=== PATIENT | male | born 1940 | race Two or more races ===

== ENCOUNTER 2017-06-14 17:53 | Emergency (ER) | payer MEDICARE, BC ==
[2017-06-14] MEDS ORDERED: predniSONE 50 MG TAB PO STA (18:09)
--- NOTE | 2017-06-14 18:09 | ED ---
General Adult HPI - General Chief complaint: Skin/Abscess/Foreign Body Stated complaint: Vertigo/Headache/Rash Time Seen by Provider: 06/14/17 18:00 Source: patient, RN notes reviewed Mode of arrival: EMS Limitations: no limitations - History of Present Illness Initial comments: This is a 76-year-old male who presents emergency department stating that for a week he's had a rash on the outside of his face left ear and left neck with little extents onto his upper back and chest. It is only on the left side. The areas has multiple areas of grouped vesicles. Patient states it is painful. Patient states about 3 days ago he started developing headache which continues today. Patient states today he started having dizziness felt as though things were spinning and moving around. Patient states he does not have any history of vertigo. Patient denies any numbness or weakness. Patient denies any facial droop. Patient denies any change in his hearing. Patient denies any visual disturbance. Patient denies any eye pain. Patient denies any chest pain palpitations difficulty breathing shortness of breath. Patient denies any recent fever chills. - Related Data Home Medications Medication Instructions Recorded Confirmed Ascorbic Acid [Vitamin C] 1,000 mg PO HS 06/14/17 06/14/17 Aspirin EC [Ecotrin] 325 mg PO DAILY 06/14/17 06/14/17 Atorvastatin [Lipitor] 15 mg PO DAILY 06/14/17 06/14/17 Brimonidine Tartrate [Alphagan P 1 drops BOTH EYES BID 06/14/17 06/14/17 0.2% Ophth Soln] Carvedilol [Coreg] 12.5 mg PO BID 06/14/17 06/14/17 Cholecalciferol [Vitamin D3] 1,000 unit PO HS 06/14/17 06/14/17 Clopidogrel [Plavix] 75 mg PO DAILY 06/14/17 06/14/17 Latanoprost [Xalatan 0.005%] 1 drop BOTH EYES HS 06/14/17 06/14/17 Niacin 100 mg PO HS 06/14/17 06/14/17 [place]-3 Fatty Acids [[place]-3] 1,000 mg PO DAILY 06/14/17 06/14/17 Ramipril [Altace] 5 mg PO HS 06/14/17 06/14/17 Timolol 0.5% Ophth Soln [Timoptic 1 drop BOTH EYES BID 06/14/17 06/14/17 0.5% Ophth Soln] Vitamin E 100 unit PO Q48H 06/14/17 06/14/17 Previous Rx's Medication Instructions Recorded Meclizine [Antivert] 25 mg PO TID #20 tab 06/14/17 predniSONE 30 mg PO BID #10 tab 06/14/17 valACYclovir HCL [Valacyclovir] 1,000 mg PO Q8HR #21 tab 06/14/17 Allergies Allergy/AdvReac Type Severity Reaction Status Date / Time No Known Allergies Allergy Verified 06/14/17 18:16 Review of Systems ROS Statement: Those systems with pertinent positive or pertinent negative responses have been documented in the HPI. ROS Other: All systems not noted in ROS Statement are negative. Past Medical History Past Medical History: Hypertension Additional Past Medical History / Comment(s): cardiac History of Any Multi-Drug Resistant Organisms: None Reported Past Surgical History: Coronary Bypass/CABG, Heart Catheterization With Stent Past Psychological History: No Psychological Hx Reported Smoking Status: Never smoker Past Alcohol Use History: None Reported Past Drug Use History: None Reported General Exam - General Exam Comments Initial Comments: GENERAL: Patient is well-developed and well-nourished. Patient is nontoxic and well- hydrated and is in mild distress. ENT: Neck is soft and supple. No significant lymphadenopathy is noted. Oropharynx is clear. Moist mucous membranes. Neck has full range of motion without eliciting any pain. EYES: The sclera were anicteric and conjunctiva were pink and moist. Extraocular movements were intact and pupils were equal round and reactive to light. Eyelids were unremarkable. PULMONARY: Unlabored respirations. Good breath sounds bilaterally. No audible rales rhonchi or wheezing was noted. CARDIOVASCULAR: There is a regular rate and rhythm without any murmurs gallops or rubs. ABDOMEN: Soft and nontender with normal bowel sounds. No palpable organomegaly was noted. There is no palpable pulsatile mass. SKIN: Patient has clumps of vesicles with significant erythema around each one on his left side of his neck upper left back and upper left chest. Patient also has extensive erythema with some vesicles on his left ear. NEUROLOGIC: Patient is alert and oriented x3. Cranial nerves II through XII are grossly intact. Motor and sensory are also intact. Normal speech, volume and content. Symmetrical smile. MUSCULOSKELETAL: Normal extremities with adequate strength and full range of motion. No lower extremity swelling or edema. No calf tenderness. LYMPHATICS: No significant lymphadenopathy is noted PSYCHIATRIC: Normal psychiatric evaluation. Limitations: no limitations Course Vital Signs 06/14/17 06/14/17 17:58 19:17 Temperature 99.1 F Pulse Rate 63 71 Respiratory 16 18 Rate Blood Pressure 186/87 159/81 O2 Sat by Pulse 92 L 94 L Oximetry Medical Decision Making - Medical Decision Making EKG shows normal sinus rhythm at 62 bpm IA interval is on 48 QRSs 88 QT interval is 418 QTC is 424. Patient's EKG shows no ST segment elevation or depression or T wave abnormalities are noted Computed tomography scan shows increased hydrocephalus. I spoke with Dr. Queen about the case and he agreed that the patient could go home on antivirals and some prednisone and follow-up in a few days with his primary medical care doctor Disposition Clinical Impression: Herpes zoster, Hydrocephalus Disposition: HOME SELF-CARE Condition: Good Instructions: Shingles (ED) Prescriptions: Meclizine [Antivert] 25 mg PO TID #20 tab predniSONE 30 mg PO BID #10 tab valACYclovir HCL [Valacyclovir] 1,000 mg PO Q8HR #21 tab Referrals: None,Stated [Primary Care Provider] - 1-2 days Time of Disposition: 19:27
--- NOTE | 2017-06-14 18:56 | CT ---
EXAMINATION TYPE: CT brain wo con DATE OF EXAM: 06/14/2017 COMPARISON: 09/13/2013 HISTORY: Dizziness and rash to neck and face. CT DLP: 1183.00 mGycm Automated exposure control for dose reduction was used. FINDINGS: There is cerebral cortical atrophy. There is mild enlargement of the ventricles. There is patchy hypo density in the periventricular white matter. There is no midline shift. There is no sign of intracran ial hemorrhage. IMPRESSION: THERE IS NEW HYDROCEPHALUS AND WHITE MATTER CHANGES PROBABLY DUE TO CHRONIC SMALL VESSEL ISCHEMIA COM PARED TO OLD CT SCAN. THIS IS A SIGNIFICANT CHANGE. THIS IS PROBABLY NORMAL PRESSURE TYPE HYDROCEPHAL US.
[2017-06-14 19:18] VITALS: RESP 18
[2017-06-14 19:45] VITALS: BP 144/62; PULSE 77; TEMP 98.6
== END 2017-06-14 19:44 | disposition home or self-care (01) ==
LOC: EC 17:53
DX: B02.9 Zoster without complications (principal); G91.9 Hydrocephalus, unspecified; I10 Essential (primary) hypertension; Z79.02 Long term (current) use of antithrombotics/antiplatelets; Z79.82 Long term (current) use of aspirin; Z79.899 Other long term (current) drug therapy
CPT/HCPCS: 99285; 93005; 70450; J7512

== ENCOUNTER → 2019-04-08 | Outpatient (CLI) | payer MEDICARE, BC ==
--- NOTE | 2019-04-08 18:28 | MR ---
EXAMINATION TYPE: MR brain wo con DATE OF EXAM: 04/08/2019 COMPARISON: None HISTORY: Amnesia. Weakness. Standard multiplanar, multisequence MRI departmental protocol Multiplanar, multisequence images of the brain were acquired. Diffusion weighted imaging was performe d. FINDINGS: There is diffuse cerebral cortical atrophy. There is enlargement of the ventricles. There i s severe thinning of the corpus callosum. There is 2.5 cm irregular area of increased signal within t he central robby on the T2 and FLAIR images. There is extensive white matter increased signal around t he lateral ventricles. There is no midline shift. There is no sign of intracranial hemorrhage. There is no definite cerebral cortical infarct. IMPRESSION: Cerebral atrophy and hydrocephalus. Extensive white matter disease with also significant involvement of the brainstem.. There is significant progression of disease compared to old exam.
== END | disposition home or self-care (01) ==
LOC: RADMRIMAIN 12:21
PROVIDERS: ATTEND Family Medicine
DX: G31.9 Degenerative disease of nervous system, unspecified (principal); G91.9 Hydrocephalus, unspecified; R90.82 White matter disease, unspecified
CPT/HCPCS: 70551

== ENCOUNTER 2020-06-28 10:16 | Emergency (ER) | payer MEDICARE, BC ==
[2020-06-28 10:30] VITALS: BP 162/85; PULSE 76; RESP 18; TEMP 97.5
[2020-06-28] MEDS ORDERED: QUEtiapine 25 MG TAB PO STA (10:51)
--- NOTE | 2020-06-28 10:57 | ED ---
General Adult HPI - General Chief complaint: Altered Mental Status Stated complaint: dementia, aggressive, anxiety Time Seen by Provider: 06/28/20 10:36 Source: patient, family, RN notes reviewed, old records reviewed Mode of arrival: ambulatory Limitations: altered mental status - History of Present Illness Initial comments: 79-year-old male with history of dementia presenting with insomnia and agitation as well as worsening dementia over the past 6 months. Patient is here with his daughter and primary caregiver who is requesting something for insomnia. Denies any acute change in his mental status. Patient is ambulatory with no complaints of focal weakness. He has been eating and drinking well. No fever no vomiting. Patient did not take the dementia medication and was prescribed over the past one year. He is willing to try something for sleep and agitation. - Related Data Home Medications Medication Instructions Recorded Confirmed Ascorbic Acid [Vitamin C] 1,000 mg PO HS 06/14/17 06/14/17 Aspirin EC [Ecotrin] 325 mg PO DAILY 06/14/17 06/14/17 Atorvastatin [Lipitor] 15 mg PO DAILY 06/14/17 06/14/17 Brimonidine Tartrate [Alphagan P 1 drops BOTH EYES BID 06/14/17 06/14/17 0.2% Ophth Soln] Carvedilol [Coreg] 12.5 mg PO BID 06/14/17 06/14/17 Cholecalciferol [Vitamin D3] 1,000 unit PO HS 06/14/17 06/14/17 Clopidogrel [Plavix] 75 mg PO DAILY 06/14/17 06/14/17 Latanoprost [Xalatan 0.005%] 1 drop BOTH EYES HS 06/14/17 06/14/17 Niacin 100 mg PO HS 06/14/17 06/14/17 [place]-3 Fatty Acids [[place]-3] 1,000 mg PO DAILY 06/14/17 06/14/17 Timolol 0.5% Ophth Soln [Timoptic 1 drop BOTH EYES BID 06/14/17 06/14/17 0.5% Ophth Soln] Vitamin E 100 unit PO Q48H 06/14/17 06/14/17 ramipriL [Altace] 5 mg PO HS 06/14/17 06/14/17 Previous Rx's Medication Instructions Recorded Meclizine [Antivert] 25 mg PO TID #20 tab 06/14/17 predniSONE 30 mg PO BID #10 tab 06/14/17 valACYclovir HCL [Valacyclovir] 1,000 mg PO Q8HR #21 tab 06/14/17 QUEtiapine [SEROquel] 25 mg PO HS #7 tab 06/28/20 Allergies Allergy/AdvReac Type Severity Reaction Status Date / Time No Known Allergies Allergy Verified 06/28/20 10:30 Review of Systems ROS Statement: Those systems with pertinent positive or pertinent negative responses have been documented in the HPI. ROS Other: All systems not noted in ROS Statement are negative. Past Medical History Past Medical History: Dementia, Hypertension Additional Past Medical History / Comment(s): cardiac History of Any Multi-Drug Resistant Organisms: None Reported Past Surgical History: Coronary Bypass/CABG, Heart Catheterization With Stent Past Psychological History: No Psychological Hx Reported Smoking Status: Never smoker Past Alcohol Use History: None Reported Past Drug Use History: None Reported General Exam Limitations: altered mental status General appearance: alert, in no apparent distress Head exam: Present: atraumatic, normocephalic Eye exam: Present: normal appearance, PERRL ENT exam: Present: normal exam Neck exam: Present: normal inspection. Absent: tenderness, meningismus Respiratory exam: Present: normal lung sounds bilaterally. Absent: respiratory distress, wheezes Cardiovascular Exam: Present: regular rate, normal rhythm GI/Abdominal exam: Present: soft. Absent: distended, tenderness, guarding Extremities exam: Present: normal inspection Back exam: Present: normal inspection Neurological exam: Present: alert. Absent: oriented X3 (2) Psychiatric exam: Present: normal affect, normal mood. Absent: agitated Skin exam: Present: warm, dry, intact Course Vital Signs 06/28/20 10:26 Temperature 97.5 F L Pulse Rate 76 Respiratory 18 Rate Blood Pressure 162/85 O2 Sat by Pulse 97 Oximetry Medical Decision Making - Medical Decision Making 79-year-old male with insomnia, dementia, worsening over the past 6 months. I did have a discussion with the patient, his , and daughter about patient's safety at home and if there was any desire for placement at this time. They all agree that the patient would prefer to be home and they want to keep him home as long as possible. They're simply requesting something for sleep at this time. I will prescribe low-dose Seroquel at night. They have an appointment with the primary care physician on Wednesday which is in 3 days. Disposition Clinical Impression: Dementia, Insomnia Disposition: HOME SELF-CARE Condition: Fair Instructions (If sedation given, give patient instructions): Insomnia (ED), Dementia (ED) Prescriptions: QUEtiapine [SEROquel] 25 mg PO HS #7 tab Is patient prescribed a controlled substance at d/c from ED?: No Referrals: Patrice Headley MD [Primary Care Provider] - 1-2 days Time of Disposition: 10:56
== END 2020-06-28 11:04 | disposition home or self-care (01) ==
LOC: EC 10:16
DX: F03.90 Unspecified dementia, unspecified severity, without behavioral disturbance, psychotic disturbance, mood disturbance, and anxiety (principal); G47.00 Insomnia, unspecified; Z95.5 Presence of coronary angioplasty implant and graft; Z95.1 Presence of aortocoronary bypass graft; I10 Essential (primary) hypertension; Z79.899 Other long term (current) drug therapy; Z79.82 Long term (current) use of aspirin
CPT/HCPCS: 99285

== ENCOUNTER → 2020-08-21 | Outpatient (CLI) | payer MEDICARE, BC ==
--- NOTE | 2020-08-21 08:16 | MR ---
EXAMINATION TYPE: MR brain wo con DATE OF EXAM: 08/21/2020 COMPARISON: Prior MRI brain April 08, 2019. Older CT studies back through 2013. HISTORY: Hydrocephalus TECHNIQUE: Multiplanar, multisequence imaging of the brain and brainstem is performed without IV cont rast. FINDINGS: Diffusion weighted images demonstrate no evidence of a recent infarct or other diffusion abnormality. There is no new worrisome extra-axial fluid collection. Persistent moderate hydrocephalus which is ne w from 2013 CT studies, not significantly changed from 2017 CT or more recent MRI. Focal and confluen t areas of T2 hyperintensity throughout the deep and periventricular white matter redemonstrated. Inv olvement in the robby again seen. Fourth ventricle size stable and not suspiciously dilated. Midline structures demonstrate normal morphology. The craniocervical junction remains within normal limits. Normal vascular flow voids are present. The visualized sinuses are clear and the globes are i ntact. Some prominence of the CSF surrounding optic nerves is stable from most recent MRI. IMPRESSION: Moderate hydrocephalus not significantly changed from most recent MRI with moderate to ad vanced chronic small vessel ischemic change. Findings out of proportion to degree of atrophy and new from 2013 studies. No significant change or progression from most recent MRI. Consider underlying nor mal pressure hydrocephalus.
== END | disposition home or self-care (01) ==
LOC: RADMRIMAIN 06:11
PROVIDERS: ATTEND Family Medicine
DX: G91.9 Hydrocephalus, unspecified (principal); I67.82 Cerebral ischemia
CPT/HCPCS: 70551

== ENCOUNTER 2020-10-13 11:28 | Emergency (ER) | payer MEDICARE, BC ==
[2020-10-13 11:39] VITALS: RESP 18
[2020-10-13 11:53] LABS: Basophils % (A) 1 %; Eosinophils # (A) 0.1 k/uL (0-0.7); Eosinophils % (A) 2 %; HCT 43.4 % (39.0-53.0); HGB 14.2 gm/dL (13.0-17.5); Lymphocytes # (A) 1.1 k/uL (1.0-4.8); Lymphocytes % (A) 16 %; MCH 30.5 pg (25.0-35.0); MCHC 32.7 g/dL (31.0-37.0); MCV 93.2 fL (80.0-100.0); Mean Platelet Volume 7.2; Monocytes # (A) 0.5 k/uL (0-1.0); Monocytes % (A) 8 %; Neutrophils # (A) 4.7 k/uL (1.3-7.7); Neutrophils % (A) 70 %; Platelet Count 223 k/uL (150-450); RBC 4.65 m/uL (4.30-5.90); RDW 12.7 % (11.5-15.5); WBC 6.7 k/uL (3.8-10.6)
[2020-10-13 12:05] LABS: ALT 23 U/L (4-49); AST 22 U/L (17-59); African American GFR (CKD) >90 (>60 ml/min/1.73 sqM); Albumin 4.1 g/dL (3.5-5.0); Alkaline Phosphatase 60 U/L (38-126); Anion Gap 6 mmol/L; Blood Urea Nitrogen 31 mg/dL (9-20); Calcium 9.4 mg/dL (8.4-10.2); Carbon Dioxide 31 mmol/L (22-30); Chloride 106 mmol/L (98-107); Glucose 88 mg/dL (74-99); Lipase 28 U/L (23-300); Non-African American GFR(CKD) 82 (>60 ml/min/1.73 sqM); Sodium 143 mmol/L (137-145); Total Bilirubin 0.5 mg/dL (0.2-1.3)
--- NOTE | 2020-10-13 12:29 | ED ---
General Adult HPI - General Stated complaint: Fall Time Seen by Provider: 10/13/20 11:29 Source: patient, EMS, RN notes reviewed Mode of arrival: EMS Limitations: no limitations - History of Present Illness Initial comments: This a 80-year-old male presents emergency Department with chief complaint of a fall. Patient states that he tripped over his foot and lost his balance fa lling. He had no head injury no loss conscious. Family called EMS injury to his fall. When EMS arrived patient was walking around the house with no complaints no visible injuries. Patient states she has no pain no loss conscious. When EMS also arrived family states that he's had 2 week history of loose stools. Patient states that he goes to or 3 times a day sometimes semi- formed. He has no abdominal pain no fevers or chills no recent antibiotic use. Patient himself has some underlying dementia has no specific complaints. - Related Data Home Medications Medication Instructions Recorded Confirmed Clopidogrel [Plavix] 75 mg PO DAILY 06/14/17 06/28/20 Latanoprost [Xalatan 0.005%] 1 drop BOTH EYES HS 06/14/17 06/28/20 Timolol 0.5% Ophth Soln [Timoptic 1 drop BOTH EYES BID 06/14/17 06/28/20 0.5% Ophth Soln] ramipriL [Altace] 5 mg PO HS 06/14/17 06/28/20 Atorvastatin [Lipitor] 20 mg PO DAILY 06/28/20 06/28/20 Brinzolamide/Brimonidine Tart 1 drop BOTH EYES BID 06/28/20 06/28/20 [Simbrinza 1%-0.2% Eye Drops] Ketorolac 0.5% Ophth Soln [Acular] 1 drops LEFT EYE QID 06/28/20 06/28/20 Loteprednol Etabonate [Lotemax] 1 drop LEFT EYE QID 06/28/20 06/28/20 Previous Rx's Medication Instructions Recorded QUEtiapine [SEROquel] 25 mg PO HS #7 tab 06/28/20 Allergies Allergy/AdvReac Type Severity Reaction Status Date / Time No Known Allergies Allergy Verified 06/28/20 11:06 Review of Systems ROS Statement: Those systems with pertinent positive or pertinent negative responses have been documented in the HPI. ROS Other: All systems not noted in ROS Statement are negative. Past Medical History Past Medical History: Dementia, Hypertension Additional Past Medical History / Comment(s): cardiac, History of Any Multi-Drug Resistant Organisms: None Reported Past Surgical History: Coronary Bypass/CABG, Heart Catheterization With Stent Past Psychological History: No Psychological Hx Reported Smoking Status: Never smoker Past Alcohol Use History: None Reported Past Drug Use History: None Reported General Exam Limitations: no limitations General appearance: alert, in no apparent distress Head exam: Present: atraumatic, normocephalic, normal inspection, other (No injury noted) Eye exam: Present: normal appearance, PERRL, EOMI. Absent: scleral icterus, conjunctival injection, periorbital swelling ENT exam: Present: normal exam, normal oropharynx, mucous membranes moist, TM's normal bilaterally Neck exam: Present: normal inspection, full ROM. Absent: tenderness, meningismus, lymphadenopathy Respiratory exam: Present: normal lung sounds bilaterally. Absent: respiratory distress, wheezes, rales, rhonchi, stridor, chest wall tenderness Cardiovascular Exam: Present: regular rate, normal rhythm, normal heart sounds. Absent: systolic murmur, diastolic murmur, rubs, gallop, clicks GI/Abdominal exam: Present: soft, normal bowel sounds. Absent: distended, tenderness, guarding, rebound, rigid Neurological exam: Present: alert, oriented X3, CN II-XII intact, reflexes normal. Absent: motor sensory deficit Skin exam: Present: warm, dry, intact, normal color. Absent: rash Course Vital Signs 10/13/20 10/13/20 11:32 12:16 Temperature 98.5 F Pulse Rate 82 77 Respiratory 18 18 Rate Blood Pressure 161/92 144/82 O2 Sat by Pulse 96 95 Oximetry Medical Decision Making - Medical Decision Making 80-year-old sent for Fall, diarrhea. No obvious injuries no complaints of pain. Patient was ambulated with no difficulty. Patient family reported history of diarrhea this labs were drawn including CBC, with no acute abnormality. Patient vitals were reviewed within normal limits. - Lab Data Result diagrams: 10/13/20 11:45 10/13/20 11:45 Lab Results 10/13/20 10/13/20 Range/Units 11:45 11:45 WBC 6.7 (3.8-10.6) k/uL RBC 4.65 (4.30-5.90) m/uL Hgb 14.2 (13.0-17.5) gm/dL Hct 43.4 (39.0-53.0) % MCV 93.2 (80.0-100.0) fL MCH 30.5 (25.0-35.0) pg MCHC 32.7 (31.0-37.0) g/dL RDW 12.7 (11.5-15.5) % Plt Count 223 (150-450) k/uL MPV 7.2 Neutrophils % 70 % Lymphocytes % 16 % Monocytes % 8 % Eosinophils % 2 % Basophils % 1 % Neutrophils # 4.7 (1.3-7.7) k/uL Lymphocytes # 1.1 (1.0-4.8) k/uL Monocytes # 0.5 (0-1.0) k/uL Eosinophils # 0.1 (0-0.7) k/uL Basophils # 0.0 (0-0.2) k/uL Sodium 143 (137-145) mmol/L Potassium 4.0 (3.5-5.1) mmol/L Chloride 106 (98-107) mmol/L Carbon Dioxide 31 H (22-30) mmol/L Anion Gap 6 mmol/L BUN 31 H (9-20) mg/dL Creatinine 0.89 (0.66-1.25) mg/dL Est GFR (CKD-EPI)AfAm >90 (>60 ml/min/1.73 sqM) Est GFR (CKD-EPI)NonAf 82 (>60 ml/min/1.73 sqM) Glucose 88 (74-99) mg/dL Calcium 9.4 (8.4-10.2) mg/dL Total Bilirubin 0.5 (0.2-1.3) mg/dL AST 22 (17-59) U/L ALT 23 (4-49) U/L Alkaline Phosphatase 60 (38-126) U/L Total Protein 7.0 (6.3-8.2) g/dL Albumin 4.1 (3.5-5.0) g/dL Lipase 28 (23-300) U/L Disposition Clinical Impression: Fall, Diarrhea Disposition: HOME SELF-CARE Condition: Stable Instructions (If sedation given, give patient instructions): Fall Prevention (ED) Additional Instructions: Follow-up with your PCP for stool studies if symptoms persist. Please return to the Emergency Department if symptoms worsen or any other concerns. Is patient prescribed a controlled substance at d/c from ED?: No Referrals: Patrice Headley MD [Primary Care Provider] - 1-2 days Time of Disposition: 13:10
[2020-10-13 13:45] VITALS: BP 143/85; PULSE 88; TEMP 97.9
== END 2020-10-13 13:56 | disposition home or self-care (01) ==
LOC: EC 11:28
DX: R19.7 Diarrhea, unspecified (principal); I10 Essential (primary) hypertension; Z79.02 Long term (current) use of antithrombotics/antiplatelets; Z79.899 Other long term (current) drug therapy; Z79.1 Long term (current) use of non-steroidal anti-inflammatories (NSAID)
CPT/HCPCS: 36415; 80053; 83690; 85025; 99283

== ENCOUNTER → 2021-01-22 | Outpatient (CLI) | payer MEDICARE, BC ==
--- NOTE | 2021-01-22 16:51 | CT ---
EXAMINATION TYPE: CT abdomen pelvis wo con DATE OF EXAM: 01/22/2021 COMPARISON: None available. HISTORY: abdominal pain, diarrhea CT DLP: 370.5 mGycm Automated exposure control for dose reduction was used. TECHNIQUE: Helical acquisition of images was performed from the lung bases through the pelvis. FINDINGS: LUNG BASES: No significant abnormality is appreciated. LIVER/GB: No significant abnormality is appreciated. PANCREAS: No significant abnormality is seen. SPLEEN: No significant abnormality is seen. ADRENALS: No significant abnormality is seen. KIDNEYS: No significant abnormality is seen. FREE AIR: No free air is visualized RETROPERITONEAL ADENOPATHY: None visualized REPRODUCTIVE ORGANS: No significant abnormality is seen URINARY BLADDER: No significant abnormality is seen. PELVIC ADENOPATHY: None visualized. OSSEOUS STRUCTURES: No significant abnormality is seen. BOWEL: Colonic diverticulosis without acute diverticulitis. No bowel obstruction, free air or fluid. . OTHER: None IMPRESSION: NO ACUTE ABNORMALITY. COLONIC DIVERTICULOSIS.
== END | disposition home or self-care (01) ==
LOC: RADCTMAIN 16:14
PROVIDERS: ATTEND Nurse Practitioner Adult Health
DX: K57.30 Diverticulosis of large intestine without perforation or abscess without bleeding (principal)
CPT/HCPCS: 74176

== ENCOUNTER 2021-02-06 09:42 | Observation (INO) | payer MEDICARE, BC ==
[2021-02-06 10:50] LABS: Basophils % (A) 1 %; Eosinophils # (A) 0.1 k/uL (0-0.7); Eosinophils % (A) 2 %; HCT 44.2 % (39.0-53.0); HGB 15.1 gm/dL (13.0-17.5); Lymphocytes # (A) 0.6 k/uL (1.0-4.8); Lymphocytes % (A) 9 %; MCHC 34.3 g/dL (31.0-37.0); MCV 93.4 fL (80.0-100.0); Mean Platelet Volume 6.9; Monocytes # (A) 0.4 k/uL (0-1.0); Monocytes % (A) 5 %; Neutrophils # (A) 5.9 k/uL (1.3-7.7); Neutrophils % (A) 82 %; Platelet Count 216 k/uL (150-450); RBC 4.73 m/uL (4.30-5.90); RDW 12.4 % (11.5-15.5); WBC 7.2 k/uL (3.8-10.6)
--- NOTE | 2021-02-06 11:03 | ED ---
Altered Mental Status HPI - General Source: EMS Mode of arrival: EMS Limitations: altered mental status <Xochitl Dumont - Last Filed: 02/06/21 15:37> <Girish Butler - Last Filed: 02/07/21 06:26> - General Chief Complaint: Altered Mental Status Stated Complaint: AMS Time Seen by Provider: 02/06/21 10:07 - History of Present Illness Initial Comments: Patient is a 80-year-old male, history of dementia, hypertension, presenting to the emergency department from home via EMS with complaints of increased confusio n and being combative with the family. Patient does seem to be alert to person and place. He is no other family present to provide further history. He denies any complaints at this time, he denies any chest pain or shortness of breath, no coughing, no abdominal pain. He denies any fevers. He has no further complaints at this time. We'll to the ER, his vital signs are stable, he is afebrile. (Xochitl Dumont) - Related Data Home Medications Medication Instructions Recorded Confirmed Clopidogrel [Plavix] 75 mg PO DAILY 06/14/17 02/06/21 Latanoprost [Xalatan 0.005%] 1 drop BOTH EYES HS 06/14/17 02/06/21 Memantine [Namenda] 10 mg PO BID 02/06/21 02/06/21 Nitroglycerin Sl Tabs [Nitrostat] 0.4 mg SL Q5M PRN 02/06/21 02/06/21 QUEtiapine [SEROquel] 25 mg PO BID 02/06/21 02/06/21 Allergies Allergy/AdvReac Type Severity Reaction Status Date / Time No Known Allergies Allergy Verified 02/06/21 12:42 Review of Systems ROS Other: All systems not noted in ROS Statement are negative. <Xochitl Dumont - Last Filed: 02/06/21 15:37> ROS Other: All systems not noted in ROS Statement are negative. <Girish Butler - Last Filed: 02/07/21 06:26> ROS Statement: Those systems with pertinent positive or pertinent negative responses have been documented in the HPI. Past Medical History Past Medical History: Dementia, Hypertension Additional Past Medical History / Comment(s): cardiac, History of Any Multi-Drug Resistant Organisms: None Reported Past Surgical History: Coronary Bypass/CABG, Heart Catheterization With Stent Past Psychological History: No Psychological Hx Reported Smoking Status: Never smoker Past Alcohol Use History: None Reported Past Drug Use History: None Reported <Xochitl Dumont - Last Filed: 02/06/21 15:37> General Exam Limitations: altered mental status <Xochitl Dumont - Last Filed: 02/06/21 15:37> - General Exam Comments Initial Comments: GENERAL: Patient is well-developed and well-nourished. Patient is nontoxic and in no acute distress, history of dementia. HEAD: Atraumatic, normocephalic. EYES: Pupils equal round and reactive to light, extraocular movements intact, sclera anicteric, conjunctiva are normal. Eyelids were unremarkable. ENT: TMs normal, nares patent, oropharynx clear without exudates. Moist mucous me mbranes. NECK: Normal range of motion, supple without lymphadenopathy or JVD. LUNGS: Unlabored respirations. Breath sounds clear to auscultation bilaterally and equal. No wheezes rales or rhonchi. HEART: Regular rate and rhythm without murmurs, rubs or gallops. ABDOMEN: Soft, nontender, normoactive bowel sounds. No guarding, no rebound. No masses appreciated. : Deferred MUSCULOSKELETAL: Normal extremities with adequate strength and normal range of motion, no pitting or edema. No clubbing or cyanosis. NEUROLOGICAL: Patient is alert and oriented x 2, does know person, date, place, and does not know the year. History of dementia, he is at baseline. Motor and sensory are also intact. Cranial nerves II through XII grossly intact. Symmetrical smile. Normal speech, normal gait. PSYCH: Normal mood, normal affect. SKIN: Warm, Dry, normal turgor, no rashes or lesions noted. (Xochitl Dumont Dar) Course <Xochilt Dumont Dar - Last Filed: 02/06/21 15:37> Vital Signs 02/06/21 02/06/21 02/07/21 09:48 14:14 00:00 Temperature 98.4 F Pulse Rate 85 90 89 Respiratory 18 18 18 Rate Blood Pressure 171/89 150/90 161/92 O2 Sat by Pulse 97 97 95 Oximetry - Reevaluation(s) Reevaluation #1: 02/06/21 12:35 patient's labs and imaging are within normal limits. Patient's vital signs remained stable. I did contact the covering physician for Dr. Headley, Dr. Kimbrough who declined admission for placement. We did then contact social work and they agreed to come to the ER for evaluation to help with placement. (Xochitl Dumont) Reevaluation #2: 02/06/21 14:00 social work did come down and speak with the patient's family and he will help them with placement at this time. He did mention to family that if placement is not option today they were halted, get the patient or he will file for adult abandonment. (Xochitl Dumont) Reevaluation #3: 02/06/21 15:37 Spoke with social work who stated that when the family spoke with medical [facility] for placement, but they described further details of the patient's behavior including masturbating to pictures on grand children and [facility] declined the patient. We will add on a psychiatric evaluation. (Xochitl Dumont) Medical Decision Making - Lab Data Result diagrams: 02/06/21 09:46 02/06/21 09:46 <Xochitl Dumont - Last Filed: 02/06/21 15:37> - Lab Data Result diagrams: 02/06/21 09:46 02/06/21 09:46 <Girish Butler - Last Filed: 02/07/21 06:26> - Medical Decision Making Patient is a 80-year-old male here with history of dementia, hypertension, presenting via EMS from home for increasing and dementia, combative at home. Signs are stable. His exam is unremarkable, he is alert and oriented 2. (Xochitl Dumont) Patient is 80-year-old man brought with increasingly combative and disruptive behavior at home. Family not able to care for him any longer at home. Patient does not meet inpatient psychiatric criteria but will require long term placement. (Girish Butler) - Lab Data Lab Results 02/06/21 02/06/21 02/06/21 Range/Units 09:46 09:46 09:46 WBC 7.2 (3.8-10.6) k/uL RBC 4.73 (4.30-5.90) m/uL Hgb 15.1 (13.0-17.5) gm/dL Hct 44.2 (39.0-53.0) % MCV 93.4 (80.0-100.0) fL MCH 32.0 (25.0-35.0) pg MCHC 34.3 (31.0-37.0) g/dL RDW 12.4 (11.5-15.5) % Plt Count 216 (150-450) k/uL MPV 6.9 Neutrophils % 82 % Lymphocytes % 9 % Monocytes % 5 % Eosinophils % 2 % Basophils % 1 % Neutrophils # 5.9 (1.3-7.7) k/uL Lymphocytes # 0.6 L (1.0-4.8) k/uL Monocytes # 0.4 (0-1.0) k/uL Eosinophils # 0.1 (0-0.7) k/uL Basophils # 0.0 (0-0.2) k/uL PT 10.8 (9.0-12.0) sec INR 1.0 (<1.2) APTT 22.3 (22.0-30.0) sec Sodium (137-145) mmol/L Potassium (3.5-5.1) mmol/L Chloride (98-107) mmol/L Carbon Dioxide (22-30) mmol/L Anion Gap mmol/L BUN (9-20) mg/dL Creatinine (0.66-1.25) mg/dL Est GFR (CKD-EPI)AfAm (>60 ml/min/1.73 sqM) Est GFR (CKD-EPI)NonAf (>60 ml/min/1.73 sqM) Glucose (74-99) mg/dL Calcium (8.4-10.2) mg/dL Total Bilirubin (0.2-1.3) mg/dL AST (17-59) U/L ALT (4-49) U/L Alkaline Phosphatase (38-126) U/L Creatine Kinase (55-170) U/L Troponin I (0.000-0.034) ng/mL Total Protein (6.3-8.2) g/dL Albumin (3.5-5.0) g/dL Urine Color Yellow Urine Appearance Clear (Clear) Urine pH 5.5 (5.0-8.0) Ur Specific [place] 1.029 (1.001-1.035) Urine Protein Trace H (Negative) Urine Glucose (UA) Negative (Negative) Urine Ketones Negative (Negative) Urine Blood Negative (Negative) Urine Nitrite Negative (Negative) Urine Bilirubin Negative (Negative) Urine Urobilinogen <2.0 (<2.0) mg/dL Ur Leukocyte Esterase Negative (Negative) Urine Opiates Screen (NotDetected) Ur Oxycodone Screen (NotDetected) Urine Methadone Screen (NotDetected) Ur Propoxyphene Screen (NotDetected) Ur Barbiturates Screen (NotDetected) U Tricyclic Antidepress (NotDetected) Ur Phencyclidine Scrn (NotDetected) Ur Amphetamines Screen (NotDetected) U Methamphetamines Scrn (NotDetected) U Benzodiazepines Scrn (NotDetected) Urine Cocaine Screen (NotDetected) U Marijuana (THC) Screen (NotDetected) Coronavirus (PCR) (Not Detectd) 02/06/21 02/06/21 02/06/21 Range/Units 09:46 09:46 09:46 WBC (3.8-10.6) k/uL RBC (4.30-5.90) m/uL Hgb (13.0-17.5) gm/dL Hct (39.0-53.0) % MCV (80.0-100.0) fL MCH (25.0-35.0) pg MCHC (31.0-37.0) g/dL RDW (11.5-15.5) % Plt Count (150-450) k/uL MPV Neutrophils % % Lymphocytes % % Monocytes % % Eosinophils % % Basophils % % Neutrophils # (1.3-7.7) k/uL Lymphocytes # (1.0-4.8) k/uL Monocytes # (0-1.0) k/uL Eosinophils # (0-0.7) k/uL Basophils # (0-0.2) k/uL PT (9.0-12.0) sec INR (<1.2) APTT (22.0-30.0) sec Sodium 142 (137-145) mmol/L Potassium 4.0 (3.5-5.1) mmol/L Chloride 106 (98-107) mmol/L Carbon Dioxide 30 (22-30) mmol/L Anion Gap 6 mmol/L BUN 29 H (9-20) mg/dL Creatinine 1.02 (0.66-1.25) mg/dL Est GFR (CKD-EPI)AfAm 81 (>60 ml/min/1.73 sqM) Est GFR (CKD-EPI)NonAf 70 (>60 ml/min/1.73 sqM) Glucose 125 H (74-99) mg/dL Calcium 9.4 (8.4-10.2) mg/dL Total Bilirubin 0.8 (0.2-1.3) mg/dL AST 40 (17-59) U/L ALT 21 (4-49) U/L Alkaline Phosphatase 61 (38-126) U/L Creatine Kinase 324 H (55-170) U/L Troponin I <0.012 (0.000-0.034) ng/mL Total Protein 7.2 (6.3-8.2) g/dL Albumin 4.2 (3.5-5.0) g/dL Urine Color Urine Appearance (Clear) Urine pH (5.0-8.0) Ur Specific [place] (1.001-1.035) Urine Protein (Negative) Urine Glucose (UA) (Negative) Urine Ketones (Negative) Urine Blood (Negative) Urine Nitrite (Negative) Urine Bilirubin (Negative) Urine Urobilinogen (<2.0) mg/dL Ur Leukocyte Esterase (Negative) Urine Opiates Screen Not Detected (NotDetected) Ur Oxycodone Screen Not Detected (NotDetected) Urine Methadone Screen Not Detected (NotDetected) Ur Propoxyphene Screen Not Detected (NotDetected) Ur Barbiturates Screen Not Detected (NotDetected) U Tricyclic Antidepress Detected H (NotDetected) Ur Phencyclidine Scrn Not Detected (NotDetected) Ur Amphetamines Screen Not Detected (NotDetected) U Methamphetamines Scrn Not Detected (NotDetected) U Benzodiazepines Scrn Not Detected (NotDetected) Urine Cocaine Screen Not Detected (NotDetected) U Marijuana (THC) Screen Not Detected (NotDetected) Coronavirus (PCR) (Not Detectd) 02/06/21 Range/Units 15:34 WBC (3.8-10.6) k/uL RBC (4.30-5.90) m/uL Hgb (13.0-17.5) gm/dL Hct (39.0-53.0) % MCV (80.0-100.0) fL MCH (25.0-35.0) pg MCHC (31.0-37.0) g/dL RDW (11.5-15.5) % Plt Count (150-450) k/uL MPV Neutrophils % % Lymphocytes % % Monocytes % % Eosinophils % % Basophils % % Neutrophils # (1.3-7.7) k/uL Lymphocytes # (1.0-4.8) k/uL Monocytes # (0-1.0) k/uL Eosinophils # (0-0.7) k/uL Basophils # (0-0.2) k/uL PT (9.0-12.0) sec INR (<1.2) APTT (22.0-30.0) sec Sodium (137-145) mmol/L Potassium (3.5-5.1) mmol/L Chloride (98-107) mmol/L Carbon Dioxide (22-30) mmol/L Anion Gap mmol/L BUN (9-20) mg/dL Creatinine (0.66-1.25) mg/dL Est GFR (CKD-EPI)AfAm (>60 ml/min/1.73 sqM) Est GFR (CKD-EPI)NonAf (>60 ml/min/1.73 sqM) Glucose (74-99) mg/dL Calcium (8.4-10.2) mg/dL Total Bilirubin (0.2-1.3) mg/dL AST (17-59) U/L ALT (4-49) U/L Alkaline Phosphatase (38-126) U/L Creatine Kinase (55-170) U/L Troponin I (0.000-0.034) ng/mL Total Protein (6.3-8.2) g/dL Albumin (3.5-5.0) g/dL Urine Color Urine Appearance (Clear) Urine pH (5.0-8.0) Ur Specific [place] (1.001-1.035) Urine Protein (Negative) Urine Glucose (UA) (Negative) Urine Ketones (Negative) Urine Blood (Negative) Urine Nitrite (Negative) Urine Bilirubin (Negative) Urine Urobilinogen (<2.0) mg/dL Ur Leukocyte Esterase (Negative) Urine Opiates Screen (NotDetected) Ur Oxycodone Screen (NotDetected) Urine Methadone Screen (NotDetected) Ur Propoxyphene Screen (NotDetected) Ur Barbiturates Screen (NotDetected) U Tricyclic Antidepress (NotDetected) Ur Phencyclidine Scrn (NotDetected) Ur Amphetamines Screen (NotDetected) U Methamphetamines Scrn (NotDetected) U Benzodiazepines Scrn (NotDetected) Urine Cocaine Screen (NotDetected) U Marijuana (THC) Screen (NotDetected) Coronavirus (PCR) Not Detected (Not Detectd) - EKG Data EKG Comments: Sinus rhythm with premature atrial complexes, no signs of acute ischemia. Ventricular rate 93, appearing a little 126, QT 354. (Xochitl Dumont) Disposition <Xochitl Dumont - Last Filed: 02/06/21 15:37> Is patient prescribed a controlled substance at d/c from ED?: No <iGrish Butler - Last Filed: 02/07/21 06:26> Clinical Impression: Dementia, Combative behavior Disposition: ADMITTED IP TO THIS HOSP Condition: Poor Referrals: Patrice Headley MD [Primary Care Provider] - 1-2 days
--- NOTE | 2021-02-06 11:03 | XR ---
EXAMINATION TYPE: XR chest 2V DATE OF EXAM: 02/06/2021 COMPARISON: 03/27/13 HISTORY: Shortness of breath TECHNIQUE: Frontal and lateral views of the chest are obtained. FINDINGS: Scattered senescent parenchymal changes noted. Hyperinflation compatible with COPD. No evidence for infiltrate. No evidence for atelectasis. Heart size is stable. Mediastinal structures are stable and grossly unremarkable. No evidence for hilar prominence. Degenerative changes dorsal spine. IMPRESSION: 1. No evidence for acute pulmonary disease.
[2021-02-06 11:04] LABS: Appearance,Urine Clear (Clear); Bilirubin,Urine Negative (Negative); Blood,Urine Negative (Negative); Color,Urine Yellow; Glucose,Urine (UA) Negative (Negative); Ketones,Urine Negative (Negative); Leukocyte Esterase,Urine Negative (Negative); Nitrite,Urine Negative (Negative); PH, Urine 5.5 (5.0-8.0); Protein,Urine Trace (Negative); Specific Gravity,Urine 1.029 (1.001-1.035); Urobilinogen,Urine <2.0 mg/dL (<2.0)
[2021-02-06 11:07] LABS: Partial Thromboplastin Time 22.3 sec (22.0-30.0); Prothrombin Time 10.8 sec (9.0-12.0)
[2021-02-06 11:09] LABS: Albumin 4.2 g/dL (3.5-5.0); Calcium 9.4 mg/dL (8.4-10.2); Total Bilirubin 0.8 mg/dL (0.2-1.3); Total Protein 7.2 g/dL (6.3-8.2)
[2021-02-06 16:00] LABS: Amphetamine Screen,Urine Not Detected (NotDetected); Barbiturate Screen,Urine Not Detected (NotDetected); Benzodiazepines Screen,Urine Not Detected (NotDetected); Cocaine Screen,Urine Not Detected (NotDetected); Methadone Screen, Urine Not Detected (NotDetected); Opiate Screen,Urine Not Detected (NotDetected); Oxycodone Screen, Urine Not Detected (NotDetected); Phencyclidine Screen,Urine Not Detected (NotDetected); Tricyclic Antidepressant,Urine Detected (NotDetected); Urn Cannabinoid Scrn Not Detected (NotDetected)
[2021-02-07] MEDS ORDERED: ACETAMINOPHEN TAB 325 MG TAB PO PRN (06:23)
[2021-02-07] MEDS ORDERED: NALOXONE 0.4 MG/ML 1 ML VIAL IV PRN (06:23)
[2021-02-07] MEDS ORDERED: LORazepam 2 MG/ML INJ IM STA (07:32)
[2021-02-07] MEDS ORDERED: QUEtiapine 25 MG TAB PO SCH (09:00)
[2021-02-07] MEDS: MEMANTINE 10 MG TAB PO SCH ×3 (12:29→15:07)
[2021-02-07] MEDS: CLOPIDOGREL 75 MG TAB PO SCH ×3 (12:29→15:07)
[2021-02-07] MEDS ORDERED: HALOPERIDOL LACTATE 5 MG/ML 1 ML VIAL IM SCH (13:00)
[2021-02-07] MEDS ORDERED: risperiDONE 1 MG TAB PO SCH (13:15)
[2021-02-07] MEDS: ENOXAPARIN 40 MG/0.4 ML SYRINGE SQ SCH (15:06)
--- NOTE | 2021-02-07 16:28 | P.HPIM ---
History of Present Illness H&P Date: 02/07/21 Chief Complaint: Agitated History of presenting complaint: This is a 80-year-old patient, follows with Dr. Patrice Headley. Chronic stable medical conditions include hypertension, coronary artery disease with history of bypass. Patient initially presented to the ER yesterday morning brought in by the family for having increased confusion and combative with the family. He was alert to person and place. Family is not able to take care of him at home. Has to brought him down here. Bedtime social worker delinquency prevention was consulted and admitted refills patient to go home and to be placed. She denies any shortness of breath no fever no chills no pain. Subsequently the family brought the patient back to the ER this morning. Patient was somewhat agitated in the ER. A sitter was o rdered. Patient himself is not able to give anymore history. No family present. Admitting review of systems cannot be obtained as patient is rather confused Past medical history to include: Hypertension, coronary artery disease with bypass, dementia Social history: No history of alcohol or smoking. Lives with family. Family history: Patient cannot tell Physical examination: VITAL SIGNS: Afebrile, 51, 14, 1:30 with 60, 99% room air GENERAL: BMI 28.2, laying in bed, awake, not talking. EYES: Pupils equal. Conjunctiva normal. HEENT: External appearance of nose and ears normal, oral cavity grossly normal. NECK: JVD not raised; masses not palpable. HEART: First and second heart sounds are normal; no edema. LUNGS: Respiratory rate normal; clear to auscultation. ABDOMEN: Soft, nontender, liver spleen not palpable, no masses palpable. PSYCH: [Patient on answering any questions for me. NEUROLOGICAL: [Cranial nerves grossly intact; no facial asymmetry, moving all 4 limbs LYMPHATICS: No lymph nodes palpable in the axilla and neck INVESTIGATIONS, reviewed in the clinical context: From February 06: WBC 7.2 hemoglobin 15.1 platelets 216 potassium 4.0 creatinine 1.02 Troponin I negative UA showing trace protein Urine drug screen: Tricyclic antidepressants Coronavirus [PCF] not detected EKG tracing personally reviewed by me-normal sinus rhythm. Nonspecific findings Chest x-ray film personally reviewed by me-cardiomegaly. 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 Sitter. We'll start the patient on Risperdal 1 mg at night and 0.5 mg the morning. Consult psychiatry -Coronary artery disease with prior history of coronary bypass Aspirin 81 mg daily, Lopressor -Essential hypertension Lopressor 25 mg twice a day -DVT prophylaxis: Subcu Lovenox Early in the day I was informed by Neri that a bed be available later in geropsychiatric unit. Late in the day I was informed by Dhiraj the social worker delinquency prevention that no bed is available. Past Medical History Past Medical History: Dementia, Hypertension Additional Past Medical History / Comment(s): cardiac, History of Any Multi-Drug Resistant Organisms: None Reported Past Surgical History: Coronary Bypass/CABG, Heart Catheterization With Stent Past Psychological History: No Psychological Hx Reported Smoking Status: Never smoker Past Alcohol Use History: None Reported Past Drug Use History: None Reported Medications and Allergies Home Medications Medication Instructions Recorded Confirmed Type Clopidogrel [Plavix] 75 mg PO DAILY 06/14/17 02/06/21 History Latanoprost [Xalatan 0.005%] 1 drop BOTH EYES HS 06/14/17 02/06/21 History Memantine [Namenda] 10 mg PO BID 02/06/21 02/06/21 History Nitroglycerin Sl Tabs [Nitrostat] 0.4 mg SL Q5M PRN 02/06/21 02/06/21 History QUEtiapine [SEROquel] 25 mg PO BID 02/06/21 02/06/21 History Allergies Allergy/AdvReac Type Severity Reaction Status Date / Time No Known Allergies Allergy Verified 02/06/21 12:42 Physical Exam Vitals: Vital Signs Pulse Resp BP Pulse Ox 02/07/21 00:00 89 18 161/92 95 02/06/21 14:14 90 18 150/90 97 Results CBC & Chem 7: 02/06/21 09:46 02/06/21 09:46 Labs: Abnormal Lab Results - Last 24 Hours (Table) 02/06/21 02/06/21 02/06/21 Range/Units 09:46 09:46 09:46 Lymphocytes # 0.6 L (1.0-4.8) k/uL BUN 29 H (9-20) mg/dL Glucose 125 H (74-99) mg/dL Creatine Kinase 324 H (55-170) U/L Urine Protein Trace H (Negative) U Tricyclic Antidepress (NotDetected) 02/06/21 Range/Units 09:46 Lymphocytes # (1.0-4.8) k/uL BUN (9-20) mg/dL Glucose (74-99) mg/dL Creatine Kinase (55-170) U/L Urine Protein (Negative) U Tricyclic Antidepress Detected H (NotDetected)
[2021-02-08] MEDS: risperiDONE 1 MG TAB PO SCH ×2 (00:18→22:40)
[2021-02-08] MEDS: LATANOPROST 0.005% OPHTH DROPS 2.5 ML BTL BOTH EYES SCH ×2 (00:18→22:39)
[2021-02-08] MEDS: risperiDONE 0.5 MG TAB PO SCH (08:02)
[2021-02-08] MEDS: ENOXAPARIN 40 MG/0.4 ML SYRINGE SQ SCH (08:04)
[2021-02-08] MEDS: CLOPIDOGREL 75 MG TAB PO SCH (08:04)
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
--- NOTE | 2021-02-08 23:14 | P.PN ---
Progress Note - Text Progress Note Date: 02/08/21 Chief Complaint: Agitated History of presenting complaint: This is a 80-year-old patient, follows with Dr. Patrice Headley. Chronic stable medical conditions include hypertension, coronary artery disease with history of bypass. Patient initially presented to the ER yesterday morning brought in by the family for having increased confusion and combative with the family. He was alert to person and place. Family is not able to take care of him at home. Has to brought him down here. Bedtime social work job titles was consulted and admitted refills patient to go home and to be placed. She denies any shortness of breath no fever no chills no pain. Subsequently the family brought the patient back to the ER this morning. Patient was somewhat agitated in the ER. A sitter was ordered. Patient himself is not able to give anymore history. No family present. 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 Today: Laying in bed. Not agitated. Not answering questions awake not eating Admitting review of systems cannot be obtained as patient is rather confused Past medical history to include: Hypertension, coronary artery disease with bypass, dementia Social history: No history of alcohol or smoking. Lives with family. Family history: Patient cannot tell Physical examination: VITAL SIGNS: Afebrile, 70, 16, 124/78, 90% room air GENERAL: BMI 28.2, laying in bed, awake, not talking. EYES: Pupils equal. Conjunctiva normal. NECK: JVD not raised; masses not palpable. HEART: First and second heart sounds are normal; no edema. LUNGS: Respiratory rate normal; clear to auscultation. ABDOMEN: Soft, nontender, liver spleen not palpable, no masses palpable. PSYCH: [Patient on answering any questions for me. NEUROLOGICAL: [Cranial nerves grossly intact; no facial asymmetry, moving all 4 limbs INVESTIGATIONS, reviewed in the clinical context: From February 06: WBC 7.2 hemoglobin 15.1 platelets 216 potassium 4.0 creatinine 1.02 Troponin I negative UA showing trace protein Urine drug screen: Tricyclic antidepressants Coronavirus [PCF] not detected EKG tracing personally reviewed by me-normal sinus rhythm. Nonspecific findings Chest x-ray film personally reviewed by me-cardiomegaly. 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 Consult psychiatry -Coronary artery disease with prior history of coronary bypass Aspirin 81 mg daily, Lopressor -Essential hypertension Lopressor 25 mg twice a day -DVT prophylaxis: Subcu Lovenox Patient was seen by psychiatry. They have signed off the case. Await placement as per social work job titles
[2021-02-09] MEDS: METOPROLOL TARTRATE 25 MG TAB PO SCH ×2 (08:37→21:33)
[2021-02-09] MEDS: ENOXAPARIN 40 MG/0.4 ML SYRINGE SQ SCH (08:37)
[2021-02-09] MEDS: CLOPIDOGREL 75 MG TAB PO SCH (08:37)
[2021-02-09] MEDS: ASPIRIN 81 MG PO SCH (08:37)
[2021-02-09] MEDS: risperiDONE 0.5 MG TAB PO SCH (09:23)
--- NOTE | 2021-02-09 20:54 | P.PN ---
Progress Note - Text Progress Note Date: 02/09/21 Chief Complaint: Agitated History of presenting complaint: This is a 80-year-old patient, follows with Dr. Patrice Headley. Chronic stable medical conditions include hypertension, coronary artery disease with history of bypass. Patient initially presented to the ER yesterday morning brought in by the family for having increased confusion and combative with the family. He was alert to person and place. Family is not able to take care of him at home. Has to brought him down here. Bedtime social sciences instructor was consulted and admitted refills patient to go home and to be placed. She denies any shortness of breath no fever no chills no pain. Subsequently the family brought the patient back to the ER this morning. Patient was somewhat agitated in the ER. A sitter was ordered. Patient himself is not able to give anymore history. No family present. 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 Patient is started on Risperdal. Sitter Today: Patient slept well last night. Today oral intake is good. Has been non--agitated. Laying in bed comfortably. Admitting review of systems cannot be obtained as patient is rather confused Active Medications Acetaminophen (Acetaminophen Tab 325 Mg Tab) 650 mg PO Q6HR PRN PRN Reason: Mild Pain or Fever > 100.5 Aspirin (Aspirin 81 Mg) 81 mg PO DAILY [facility] Last Admin: 02/09/21 08:37 Dose: 81 mg Documented by: Clopidogrel Bisulfate (Clopidogrel 75 Mg Tab) 75 mg PO DAILY [facility] Last Admin: 02/09/21 08:37 Dose: 75 mg Documented by: Enoxaparin Sodium (Enoxaparin 40 Mg/0.4 Ml Syringe) 40 mg SQ DAILY [facility] Last Admin: 02/09/21 08:37 Dose: 40 mg Documented by: Latanoprost (Latanoprost 0.005% Ophth Drops 2.5 Ml Btl) 1 drops BOTH EYES HS [facility] Last Admin: 02/08/21 22:39 Dose: 1 drops Documented by: Metoprolol Tartrate (Metoprolol Tartrate 25 Mg Tab) 25 mg PO BID [facility] Last Admin: 02/09/21 08:37 Dose: 25 mg Documented by: Naloxone HCl (Naloxone 0.4 Mg/Ml 1 Ml Vial) 0.2 mg IV Q2M PRN PRN Reason: Opioid Reversal Risperidone (Risperidone 0.5 Mg Tab) 0.5 mg PO DAILY [facility] Last Admin: 02/09/21 09:23 Dose: 0.5 mg Documented by: Risperidone (Risperidone 1 Mg Tab) 1 mg PO HS [facility] Last Admin: 02/08/21 22:40 Dose: 1 mg Documented by: Past medical history to include: Hypertension, coronary artery disease with bypass, dementia Social history: No history of alcohol or smoking. Lives with family. Family history: Patient cannot tell Physical examination: VITAL SIGNS: 98.5, 71, 18, 120/66, 95% room air GENERAL: BMI 28.2, laying in bed, awake, comfortable EYES: Pupils equal. Conjunctiva normal. NECK: JVD not raised; masses not palpable. HEART: First and second heart sounds are normal; no edema. LUNGS: Respiratory rate normal; clear to auscultation. ABDOMEN: Soft, nontender, liver spleen not palpable, no masses palpable. PSYCH: [Patient on answering any questions for me. NEUROLOGICAL: [Cranial nerves grossly intact; no facial asymmetry, moving all 4 limbs INVESTIGATIONS, reviewed in the clinical context: From February 06: WBC 7.2 hemoglobin 15.1 platelets 216 potassium 4.0 creatinine 1.02 Troponin I negative UA showing trace protein Urine drug screen: Tricyclic antidepressants Coronavirus [PCF] not detected EKG tracing personally reviewed by me-normal sinus rhythm. Nonspecific findings Chest x-ray film personally reviewed by me-cardiomegaly. Lung mena clear Assessment and plan: -Major cognitive impairment from late onset Alzheimer's dementia, with agitation-now stabilized Risperdal 1 mg at night and 0.5 mg the morning. -Coronary artery disease with prior history of coronary bypass Aspirin 81 mg daily, Lopressor -Essential hypertension Lopressor 25 mg twice a day -DVT prophylaxis: Subcu Lovenox Patient is doing rather well with the Risperdal. Oral intake is good. Hope social sciences instructor would reevaluate for patient to return with family.
[2021-02-09] MEDS: risperiDONE 1 MG TAB PO SCH (21:33)
[2021-02-09] MEDS: LATANOPROST 0.005% OPHTH DROPS 2.5 ML BTL BOTH EYES SCH (21:33)
[2021-02-10] MEDS: ASPIRIN 81 MG PO SCH (08:12)
[2021-02-10] MEDS: ENOXAPARIN 40 MG/0.4 ML SYRINGE SQ SCH (08:12)
[2021-02-10] MEDS: CLOPIDOGREL 75 MG TAB PO SCH (08:12)
[2021-02-10] MEDS: risperiDONE 0.5 MG TAB PO SCH (08:13)
[2021-02-10] MEDS: METOPROLOL TARTRATE 25 MG TAB PO SCH (08:13)
[2021-02-10 12:42] VITALS: BP 135/73; PULSE 59; RESP 17; TEMP 98.2
--- NOTE | 2021-02-10 13:28 | P.DS ---
Providers Date of admission: 02/07/21 06:24 Expected date of discharge: 02/10/21 Attending physician: Duc Kimbrough Consults: 02/07/21 16:26 Consult Physician Routine Consulting Provider: Patrice Simmons Reason/Comments: Advanced dementia agitated Do you want consulting provider notified?: Yes Primary care physician: Patrice Gandhi [facility] Course: Chief Complaint: Agitated History of presenting complaint: This is a 80-year-old patient, follows with Dr. Patrice Headley. Chronic stable medical conditions include hypertension, coronary artery disease with history of bypass. Patient initially presented to the ER yesterday morning brought in by the family for having increased confusion and combative with the family. He was alert to person and place. Family is not able to take care of him at home. Has to brought him down here. Bedtime social secretary was consulted and admitted refills patient to go home and to be placed. She denies any shortness of breath no fever no chills no pain. Subsequently the family brought the patient back to the ER this morning. Patient was somewhat agitated in the ER. A sitter was ordered. Patient himself is not able to give anymore history. No family present. 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 Patient is started on Risperdal. Sitter Today: Patient has been comfortable. Has not been aggressive at all. slept well last night. Oral intake fair. Consultation: Dr. Munson from psychiatry Past medical history to include: Hypertension, coronary artery disease with bypass, dementia Social history: No history of alcohol or smoking. Lives with family. Family history: Patient cannot tell Physical examination: VITAL SIGNS: 98.2, 59, 17, 135 with 73, 96% room air GENERAL: BMI 28.2, laying in bed, awake, comfortable EYES: Pupils equal. Conjunctiva normal. NECK: JVD not raised; masses not palpable. HEART: First and second heart sounds are normal; no edema. LUNGS: Respiratory rate normal; clear to auscultation. ABDOMEN: Soft, nontender, liver spleen not palpable, no masses palpable. PSYCH: [place] answers questions. NEUROLOGICAL: [Cranial nerves grossly intact; no facial asymmetry, moving all 4 limbs INVESTIGATIONS, reviewed in the clinical context: From February 06: WBC 7.2 hemoglobin 15.1 platelets 216 potassium 4.0 creatinine 1.02 Troponin I negative UA showing trace protein Urine drug screen: Tricyclic antidepressants Coronavirus [PCF] not detected EKG tracing personally reviewed by me-normal sinus rhythm. Nonspecific findings Chest x-ray film personally reviewed by me-cardiomegaly. Lung mena clear Assessment and plan: -Major cognitive impairment from late onset Alzheimer's dementia, with corrected Risperdal 1 mg at night and 0.5 mg the morning. -Coronary artery disease with prior history of coronary bypass Aspirin 81 mg daily, Lopressor -Essential hypertension Lopressor 25 mg twice a day -DVT prophylaxis: Subcu Lovenox Disposition: [facility]/[id number] [place], [place] Plan - Discharge Summary New Discharge Prescriptions: New Aspirin 81 mg PO DAILY chew Atorvastatin Calcium [Lipitor] 20 mg PO HS #1 tab Metoprolol Tartrate [Lopressor] 25 mg PO BID tab risperiDONE [RisperDAL] 0.5 mg PO DAILY #30 tab risperiDONE [RisperDAL] 1 mg PO HS #30 tab Acetaminophen Tab [Tylenol] 650 mg PO Q6HR PRN tab PRN Reason: Mild Pain Or Fever > 100.5 Continue Clopidogrel [Plavix] 75 mg PO DAILY Latanoprost [Xalatan 0.005%] 1 drop BOTH EYES HS Nitroglycerin Sl Tabs [Nitrostat] 0.4 mg SL Q5M PRN PRN Reason: Chest Pain Discontinued Memantine [Namenda] 10 mg PO BID QUEtiapine [SEROquel] 25 mg PO BID Discharge Medication List Clopidogrel [Plavix] 75 mg PO DAILY 06/14/17 [History] Latanoprost [Xalatan 0.005%] 1 drop BOTH EYES HS 06/14/17 [History] Nitroglycerin Sl Tabs [Nitrostat] 0.4 mg SL Q5M PRN 02/06/21 [History] Acetaminophen Tab [Tylenol] 650 mg PO Q6HR PRN tab 02/10/21 [Rx] Aspirin 81 mg PO DAILY chew 02/10/21 [Rx] Atorvastatin Calcium [Lipitor] 20 mg PO HS #1 tab 02/10/21 [Rx] Metoprolol Tartrate [Lopressor] 25 mg PO BID tab 02/10/21 [Rx] risperiDONE [RisperDAL] 0.5 mg PO DAILY #30 tab 02/10/21 [Rx] risperiDONE [RisperDAL] 1 mg PO HS #30 tab 02/10/21 [Rx] Follow up Appointment(s)/Referral(s): Patrice Headley MD [Primary Care Provider] - 1-2 days Activity/Diet/Wound Care/Special Instructions: fall precautions
--- NOTE | 2021-02-10 14:11 | P.CON ---
Consult Note - . Consult date: 02/10/21 Assessment/Plan:: Clinical Problems: Major neurocognitive disorder unspecified, rule out major neurocognitive disorder secondary to Alzheimer's disease, frontotemporal dementia, picks disease Interim history: The medical record and interviewed the patient. He was able concentrate interview provided no substantial information. He was unable to articulate the reason for his hospitalization. Affect, he was unaware that he is in hospital. During the interview he perseverated on just having met with a scientific photographer and had his pictures taken. According to the record he is had no episodes of behavioral dyscontrol. He has not required intramuscular medication for agitation or aggression. He is not displayed sexually inappropriate behavior. He remains on one-to-one. Mental status exam: He presented as a thin pale appearing elderly male who is laying comfortably in bed. He made eye contact but had difficulty concentrating and attending to the interview. His behavior was not inappropriate. He showed no abnormality of psychomotor activity. His speech was spontaneous with normal rate and rhythm. His affect was stable and appropriate. He did not express ideas reference, paranoid ideation or delusional thoughts. His thinking was concrete, disorganized and not goal directed. He does not appear to be responding to internal stimuli. He was oriented only to per person. He did not develop that he was in the hospital and did not know the name of the hospital. He did not know the year, the month the date or day of the week. He did not know the season. He was able to register 3 words for the memory test but was unable to recall if the words after a distraction exercise. I was unable to complete a formal Mini-Mental State exam due to the severity of his cognitive impairment. Assessment: He is severely cognitively impaired and unable to care for himself. He needs long-term care where his needs were met and he would not be mistreated. Plan: Continue with plan for placement in a correction. Continue risperidone 0.5 milligram twice a day and 1 mg at bedtime. He will need guardianship and conservatorship. Thank you for this consult. Psychiatry will sign off the case.
== END 2021-02-10 14:21 ==
LOC: EC 09:42 → 4SSUR 02-07 06:24 → 5NMEDONC 02-07 20:12 → 4SSUR 02-08 17:32 → 5NMEDONC 02-08 22:41
PROVIDERS: ADMIT Hospitalist; ATTEND Hospitalist
DX: F02.80 Dementia in other diseases classified elsewhere, unspecified severity, without behavioral disturbance, psychotic disturbance, mood disturbance, and anxiety (principal); G30.1 Alzheimer's disease with late onset; F01.51 Vascular dementia, unspecified severity, with behavioral disturbance; I10 Essential (primary) hypertension; I25.10 Atherosclerotic heart disease of native coronary artery without angina pectoris; Z20.822 Contact with and (suspected) exposure to COVID-19; Z79.02 Long term (current) use of antithrombotics/antiplatelets; Z79.82 Long term (current) use of aspirin; Z79.899 Other long term (current) drug therapy; Z95.1 Presence of aortocoronary bypass graft; Z95.5 Presence of coronary angioplasty implant and graft
CPT/HCPCS: 96372 ×4; 82075; 99285; 36415; 93005; 80053; 82550; 84484; 85025; 85610; 85730; 81003; 80306; 87635; 71046; G0378 ×6; J2060; J1650 ×4